=== PATIENT | female | born 1990 | race Caucasian/White ===

== ENCOUNTER 2018-06-06 22:54 | Emergency (ER) | payer BC ==
[~2018-06-06] VITALS: Ht 160 cm; Wt 44.5 kg
[2018-06-06 23:04] VITALS: Ht 160 cm; Wt 44.5 kg
[2018-06-07] MEDS ORDERED: VOLTAREN75 MG PO (00:32)
[2018-06-07 00:52] VITALS: BP 132/76
== END 2018-06-07 00:53 | disposition home or self-care (01) ==
LOC: D.ER 22:54
DX: M25.532 Pain in left wrist (principal)

== ENCOUNTER 2018-08-08 21:18 | Emergency (ER) | payer BC ==
[2018-06-06 23:04] VITALS: Ht 160 cm; Wt 43.6 kg
[~2018-08-08] VITALS: Ht 160 cm; Wt 43.6 kg
[~2018-08-08 21:18] MED LIST: VOLTAREN75 MG PO
[2018-08-08 21:38] LABS: APPEARANCE CLEAR (CLEAR); BILIRUBIN NEGATIVE (NEGATIVE); COLOR YELLOW (YELLOW); GLUCOSE NEGATIVE (NEGATIVE); KETONE NEGATIVE (NEGATIVE); NITRITE NEGATIVE (NEGATIVE); PROTEIN NEGATIVE (NEGATIVE); UROBILINOGEN NORMAL (NORMAL)
[2018-08-08 21:40] LABS: WHITE CELLS - URINE 0-5 /hpf (0-5)
[2018-08-08 21:41] LABS: BACTERIA FEW /hpf (NONE SEEN); EPITHELIAL CELLS 0-5 /hpf (0-5)
[2018-08-08 21:42] LABS: HCG URINE NEGATIVE (NEGATIVE)
[2018-08-08 21:46] LABS: BASOPHILS 0.5 % (0-2); EOSINOPHILS 1.4 % (0-7); HEMATOCRIT 40.4 % (36.0-48.0); HEMOGLOBIN 13.8 g/dL (12-16); IMMATURE GRANULOCYTES 0.2 % (0-5); LYMPHOCYTES 23.5 % (15-50); MCHC 34.2 g/dL (31.0-37.0); MCV 93.7 fL (80.0-100.0); MEAN PLATELET VOLUME 12.1 fL (7.4-10.4); MONOCYTES 8.4 % (2-11); PLATELET COUNT 169 10x3/uL (130-400); RBC 4.31 10x6/uL (4.00-5.40); RDW 11.9 % (11.5-14.5); WBC 6.3 10x3/uL (4.8-10.8)
[2018-08-08 21:57] LABS: ALBUMIN 4.1 g/dL (3.4-5.0); ALKALINE PHOSPHATASE 45 U/L (46-116); ALT (SGPT) 14 U/L (10-68); AMYLASE - SERUM 40 U/L (25-115); BILIRUBIN - TOTAL 0.86 mg/dL (0.2-1.3); CALC OSMOLALITY 280 mosm/kg (275-300); CARBON DIOXIDE 31.2 mmol/L (21.0-32.0); CHLORIDE - SERUM 103 mmol/L (98-107); CREATININE - SERUM 0.9 mg/dL (0.6-1.3); GLUCOSE 117 mg/dL (74-106); LIPASE 111 U/L (73-393); POTASSIUM - SERUM 3.9 mmol/L (3.5-5.1); PROTEIN - SERUM 7.7 g/dL (6.4-8.2); SODIUM 140 mmol/L (136-145); UREA NITROGEN 14 mg/dL (7-18); eGFR NON AFRICAN AMERICAN 81 mL/min (90-120)
[2018-08-09] MEDS ORDERED: KEFLEX500 MG PO (00:25)
[2018-08-09] MEDS ORDERED: ZOFRAN4 MG PO (00:25)
[2018-08-09 01:50] VITALS: BP 118/81
== END 2018-08-09 01:09 | disposition home or self-care (01) ==
LOC: D.ER 21:18
PROVIDERS: Family Medicine
DX: K59.00 Constipation, unspecified (principal); L01.00 Impetigo, unspecified; R51 Headache; R11.2 Nausea with vomiting, unspecified

== ENCOUNTER 2019-01-28 05:45 | Day surgery (SDC) | payer MEDICAID ==
[2019-01-27 15:22] LABS: BASOPHILS 0.1 % (0-2); EOSINOPHILS 0.5 % (0-7); HEMATOCRIT 40.7 % (36.0-48.0); HEMOGLOBIN 14.1 g/dL (12-16); IMMATURE GRANULOCYTES 0.1 % (0-5); LYMPHOCYTES 17.6 % (15-50); MCH 31.7 pg (26.0-34.0); MCHC 34.6 g/dL (31.0-37.0); MCV 91.5 fL (80.0-100.0); MEAN PLATELET VOLUME 12.5 fL (7.4-10.4); MONOCYTES 7.3 % (2-11); NEUTROPHILS 74.4 % (40-80); PLATELET COUNT 146 10x3/uL (130-400); RBC 4.45 10x6/uL (4.00-5.40); RDW 12.4 % (11.5-14.5); WBC 7.3 10x3/uL (4.8-10.8)
[2019-01-27 15:52] LABS: CALC OSMOLALITY 275 mosm/kg (275-300); CALCIUM 9.9 mg/dL (8.5-10.1); CHLORIDE - SERUM 100 mmol/L (98-107); CREATININE - SERUM 0.6 mg/dL (0.6-1.3); GLUCOSE 98 mg/dL (74-106); POTASSIUM - SERUM 3.8 mmol/L (3.5-5.1); SODIUM 138 mmol/L (136-145); UREA NITROGEN 13 mg/dL (7-18); eGFR NON AFRICAN AMERICAN > 90 mL/min (90-120)
[~2019-01-28] VITALS: Ht 160 cm; Wt 44.5 kg
[~2019-01-28 05:45] MED LIST changes: +KEFLEX500 MG PO; +PRENAVITE1 TAB PO; +ZOFRAN4 MG PO
[2019-01-28 06:04] VITALS: BP 120/79; Ht 160 cm; Wt 44.5 kg
--- NOTE | 2019-01-28 09:58 | NUR ---
PATIENT WAS ABLE TO VOID. PATIENT HAS MET DC CRITERIA.
== END 2019-01-28 10:40 | disposition home or self-care (01) ==
LOC: D.OPS 05:45 → D.PAN 07:30 → D.OPS 07:30
PROVIDERS: ATTEND Obstetrics & Gynecology
DX: O02.1 Missed abortion (principal); Z01.812 Encounter for preprocedural laboratory examination